=== PATIENT | male | born 1945 | race Caucasian/White ===

== ENCOUNTER → 2016-04-14 | Outpatient (CLI) | payer OTHER ==
--- NOTE | 2016-04-14 09:46 | KCIC ---
PROCEDURE Orbit radiographs HISTORY Screening prior to MRI, history of metal to eyes on several occasions FINDINGS Two views of the orbits are submitted. No metallic foreign body is identified in the region of the orbits. IMPRESSION 1. No radiopaque metallic foreign body is identified in the region of the orbits. Electronically signed by: Leonardo Espino MD (Apr 14, 2016 09:45:19)
--- NOTE | 2016-04-14 10:46 | KCIC ---
PROCEDURE MRI brain without contrast HISTORY Memory loss, recent fall 3 weeks ago and hit back of head, new unsteady gait and dizziness TECHNIQUE Sagittal and axial T1, axial and coronal T2, axial diffusion, axial FLAIR, and axial gradient echo T2 weighted images were acquired of the brain. COMPARISON None FINDINGS There is some motion degradation. There is no intra-axial mass effect, midline shift, extra-axial fluid collection. There is no restricted diffusion to suggest a recent infarct or cytotoxic edema. There is mild to moderate T2 and FLAIR hyperintense signal abnormality of the bilateral parietal periventricular deep white matter, several other scattered foci in the deep white matter greatest of the frontal lobes. There is other mild T2 and FLAIR hyperintense signal abnormality more anteriorly of the periventricular white matter, very minimal signal abnormality of the chacorta. There are old lacunar infarcts of the right cerebellum, also likely small focus of the medial right thalamus. There is a focus of old microhemorrhage/hemosiderin deposition of the left parietal white matter. There is preservation of the major arterial intracranial flow voids at the skull base. There is mild bilateral ethmoid air cell and right sphenoid sinus mucosal thickening, also minimally of the left maxillary sinus and negligible frontal sinus mucosal thickening. Cerebellar tonsils are normal in location. There is preservation of the marrow signal of the clivus. There is no significant abnormality of the pineal gland or pituitary gland. Ventricular size is considered within normal limits. Cerebral volume can be considered within limits for the patient's age. IMPRESSION 1. There is no evidence of recent infarct or intracranial mass effect or fluid collection. Scattered T2 and FLAIR hyperintense signal abnormality of the supratentorial white matter greatest of the parietal lobes is nonspecific although most commonly due to chronic microvascular ischemic disease in a patient of this age. There are old lacunar infarcts of the right thalamus and right cerebellum. There is a focus of old micro hemorrhage of the left parietal lobe. Electronically signed by: Leonardo Espino MD (Apr 14, 2016 10:44:58)
== END | disposition home or self-care (01) ==
LOC: KCIC MRI 09:15
PROVIDERS: ATTEND Psychiatry & Neurology Neurology with Special Qualifications in Child Neurology
DX: Z01.812 Encounter for preprocedural laboratory examination (principal); R41.3 Other amnesia
CPT/HCPCS: 70030; 70551

== ENCOUNTER → 2018-11-20 | Outpatient (CLI) | payer OTHER ==
--- NOTE | 2018-11-20 15:30 | KCIC ---
EXAM: Cervical spine, 6 views. HISTORY: Pain. COMPARISON: None. FINDINGS: 6 views of the cervical spine are obtained. There is minimal retrolisthesis of C3 5 on C6 and minimal anterolisthesis of C4 on C5. There is degenerative endplate remodeling with slight disc space narrowing at C5-C6. There is facet arthropathy contributing to suspected foraminal narrowing at C5-C6 and C6-C7. There is evidence of CABG. IMPRESSION: 1. Degenerative change primarily at C5-C6. 2. No acute osseous finding. Electronically signed by: Maryjane Mcintosh MD (11/20/2018 3:26 PM) [place] [id number]
== END | disposition home or self-care (01) ==
LOC: KCIC 15:04
PROVIDERS: ATTEND Family Medicine
DX: M43.12 Spondylolisthesis, cervical region (principal); M48.02 Spinal stenosis, cervical region; M47.812 Spondylosis without myelopathy or radiculopathy, cervical region; M12.88 Other specific arthropathies, not elsewhere classified, other specified site
CPT/HCPCS: 72050

== ENCOUNTER → 2020-07-07 | Outpatient (CLI) | payer OTHER ==
[~2020-07-07] MED LIST: IOHEXOL 300 MG/ML 100ML VIAL. IV ONE
[2020-07-07 14:19] LABS: CREATININE 1.1 mg/dL (0.7-1.3); GFR 65.6
--- NOTE | 2020-07-08 09:02 | RAD ---
EXAMINATION: CT ABDOMEN+PELVIS WO+W (CT ABDOMEN/PELVIS WITHOUT AND WITH IV CONTRAST, INCLUDING EXCRET ORY PHASE IMAGING (CT UROGRAM)) CLINICAL HISTORY: Left flank pain, microhematuria TECHNIQUE: CT urogram protocol including unenhanced, renal parenchymal phase and excretory phase kevin l imaging was obtained following intravenous contrast. 3D post-processing/reconstructions also perfor med. CT Dose Reduction Employed: One or more of the following individualized dose reduction techniques wer e utilized for this examination: 1. Automated exposure control 2. Adjustment of the mA and/or kV ac cording to patient size 3. Use of iterative reconstruction technique. COMPARISON: None FINDINGS: KIDNEYS AND URINARY TRACT: Right: Mild cortical atrophy, likely at least in part related to aging. No renal calculi or mass. Opa cified calyces, renal pelvis, and ureter unremarkable with no evidence of dilation, filling defect, o r stricture. Left: Mild cortical atrophy, likely at least in part related to aging. Partially exophytic simple dashawn earing 3 cm cyst in the upper pole. No renal calculi. Opacified calyces, renal pelvis, and ureter unr emarkable with no evidence of dilation, filling defect, or stricture. Bladder: No evidence of filling defect, calculus, or definite wall thickening. Minimal bladder disten tion limits evaluation. ABDOMEN AND PELVIS: Several small cysts in the visualized lungs. Coronary atherosclerotic calcification. Multiple subcentimeter hypodensities scattered throughout the liver, too small adequately characteriz e but likely benign. Small old calcified granulomas in the spleen and liver. Gallbladder, pancreas, a nd adrenal glands unremarkable. Punctate calcification in the central prostate. No pelvic free fluid or mass. No bowel dilation or definite wall thickening. Normal appendix. Extensive arterial calcification without aneurysm. No lymphadenopathy. Multilevel thoracolumbar degenerative changes. Tiny cortical defect in the posterior inferior right i liac wing, nonspecific. Partially visualized median sternotomy postoperative changes. IMPRESSION: No evidence of filling defect, stricture, or focal dilation in the opacified urinary collecting syste ms. 3 cm left renal cyst. Additional nonacute findings as described. Electronically signed by: Jack Guzmán DO (07/08/2020 9:00 AM) [id number]
== END ==
LOC: CT 15:56
PROVIDERS: ATTEND Family Medicine
DX: N28.1 Cyst of kidney, acquired (principal); G31.89 Other specified degenerative diseases of nervous system; J98.4 Other disorders of lung; N32.89 Other specified disorders of bladder
CPT/HCPCS: 36415; 74178; 82565; Q9967

== ENCOUNTER → 2020-07-29 | Day surgery (SDC) | payer OTHER ==
[~2020-07-29] MED LIST changes: +BUPR450T3 PO; +CITA40TA5 PO; +CRESTOR40 MG PO; +DILT240C33 PO; -IOHEXOL 300 MG/ML 100ML VIAL. IV ONE; +IV RINGERS,LACTATED 1000ML 1,000 ML IV SCH; +LIDOCAINE 2% PF 5 ML VIAL. ONE; +LOSA50TA15 PO; +MECL-75 PO; +PANT20TA2 PO; +PROPOFOL 10 MG/ML (20ML) VIAL. IV ONE; +SUCR1TAB PO; +[UNRECOGNIZED DRUG - CODE] PO
[2020-07-29 13:56] VITALS: BP 105/67
--- NOTE | 2020-08-02 18:09 | PATHOLOGY ---
[facility] Accession Number: [id number] . 01 Material submitted: . esophagus - DISTAL ESOPHAGUS BIOPSY. Modifiers: distal . 01 Clinical history: . UCONTROLLED HEARTBURN, H.... POSITIVE FOR COLOGUARD, GERD, SCREENING EGD/COLON RULE OUT NUÑEZ'S . 02 Diagnosis: Esophageal biopsies, distal esophagus: - Reflux esophagitis. LBQ 08/02/2020 1603 Local . 02 Comment: Sections of the distal esophageal biopsy reveal segments of focally tangentially oriented hyperplastic squamous esophageal mucosa. The findings are supportive of the diagnosis of reflux esophagitis. There is no evidence of Nuñez's changes, dysplasia or malignancy. (JPM/db; 08/02/2020) . 02 Electronically signed: . Hunter Angeles MD, Pathologist NPI- [id number] . 01 Gross description: . Received in formalin labeled "Fracisco Curry, distal esophagus biopsy" are multiple moran-brown soft tissue fragments measuring in aggregate 1.2 x 0.4 x 0.2 cm. The specimen is submitted entirely in A1. ([facility]; 07/30/2020) GZA/GZA 07/30/2020 1231 Local . 02 Pathologist provided ICD-10: K21.00 . 02 CPT . 967483 Specimen Comment: A courtesy copy of this report has been sent to [phone], [phone] Specimen Comment: [id number] Specimen Comment: Report sent to / Performed at: 01 [facility] [address], [place], [place] [id number] MD Edmundo Aiken MD Phone: [phone] Performed at: 02 [facility] [address] [place], [place] [id number] MD Hunter Angeles MD Phone: [phone]
== END | disposition home or self-care (01) ==
LOC: SURG 11:47 → MERGE 13:00
PROVIDERS: ATTEND Internal Medicine Gastroenterology
DX: R19.5 Other fecal abnormalities (principal); K64.0 First degree hemorrhoids; R12 Heartburn; K21.00 Gastro-esophageal reflux disease with esophagitis, without bleeding; K31.89 Other diseases of stomach and duodenum; I10 Essential (primary) hypertension; E78.00 Pure hypercholesterolemia, unspecified; G47.30 Sleep apnea, unspecified; M19.90 Unspecified osteoarthritis, unspecified site; F41.9 Anxiety disorder, unspecified; F32.9 Major depressive disorder, single episode, unspecified; Z87.891 Personal history of nicotine dependence; Z79.899 Other long term (current) drug therapy; Z98.890 Other specified postprocedural states; Z20.822 Contact with and (suspected) exposure to COVID-19
CPT/HCPCS: 43239; 45378; 87426; 88305; J2704